=== PATIENT | male | born 1965 | race Two or more races ===

== ENCOUNTER 2020-09-04 06:59 | Emergency (ER) | payer MEDICAID ==
[~2020-09-04] VITALS: Ht 182.9 cm; Wt 86.3 kg
--- NOTE | 2020-09-04 07:22 | NUR ---
PT SEEN AT [facility] FOR PENILE AND SCROTAL PAIN AND PAINFUL URINATION THREE WEEKS AGO. PT STATES HAS WORSENED. PT PROVIDED URINAL. CALL LIGHT WITHIN REACH. ERP IN TO SEE PT.
[2020-09-04] MEDS ORDERED: FLUCONAZOLE 50 MG TABLET PO ONE (07:30)
--- NOTE | 2020-09-04 08:02 | NUR ---
PT MEDICATED PER ERP ORDER. FS 105. PT GETTING URINE SPECIMEN NOW.
--- NOTE | 2020-09-04 08:10 | NUR ---
URINE COLLECTED/SENT TO LAB.
[2020-09-04 08:24] LABS: MICROSCOPIC NOT IND
[2020-09-04 08:53] VITALS: BP 121/61
== END 2020-09-04 08:55 | disposition home or self-care (01) ==
LOC: ED 08:40
DX: B35.6 Tinea cruris (principal)
CPT/HCPCS: 81003; 82962; 99283